=== PATIENT | female | born 1935 | race Caucasian/White ===

== ENCOUNTER 2019-01-09 10:24 | Emergency (ER) | payer OTHER, BC ==
--- NOTE | 2019-01-09 11:22 | RAD REPORT ---
EXAM DESCRIPTION: CT - CTHCSPWOC - 01/09/2019 11:12 am CLINICAL HISTORY: Trauma, head and neck injury. fall, head injury COMPARISON: <Comparisons> TECHNIQUE: Axial 5 mm thick images of the head were obtained. Axial 2 mm thick images of the cervical spine were obtained with sagittal and coronal reconstruction images generated and reviewed. All CT scans are performed using dose optimization technique as appropriate and may include automated exposure control or mA/KV adjustment according to patient size. FINDINGS: CT HEAD WITHOUT CONTRAST: No acute hemorrhage, hydrocephalus or extra-axial collection is identified.No areas of brain edema or midline shift. The paranasal sinuses and mastoids are clear.The calvarium is intact. CT CERVICAL SPINE WITHOUT CONTRAST: No fracture or subluxation.Moderate midcervical spondylosis.No prevertebral soft tissues swelling is identified. Aberrant right subclavian artery noted. IMPRESSION: No acute intracranial or cervical spine findings. Moderate midcervical degenerative change
--- NOTE | 2019-01-09 11:23 | RAD REPORT ---
EXAM DESCRIPTION: CT - CTFB CLINICAL HISTORY: head injury Fall, trauma, facial injury and pain. COMPARISON: No comparisonsNo comparisons TECHNIQUE: Axial 2 mm thick images of the face were obtained with sagittal and coronal reconstructio n images. All CT scans are performed using dose optimization technique as appropriate and may include automated exposure control or mA/KV adjustment according to patient size. FINDINGS: No acute facial bone fracture is seen.The mandible is intact. The globes and orbital contents are grossly unremarkable.The paranasal sinuses and mastoids are clear . IMPRESSION: Negative for facial bone fracture.
--- NOTE | 2019-01-09 11:52 | ER ---
Nurse's Notes [facility] Name: Poly Lutz Age: 83 yrs Sex: Female : 1935 Arrival Date: 01/09/2019 Time: 10:26 Bed 13 Private MD: Diagnosis: Superficial injury of head;Unspecified open wound of right forearm;Unspecified open wound of right upper arm Presentation: 01/09 10:35 Presenting complaint: Patient states: "I fell last night going up the stairs, I tripped aa5 on the last step and fell". Pt c/o skin tears to right arm, bandage noted at this time. Denies taking anticoagulants. Transition of care: patient was not received from another setting of care. Onset of symptoms was January 2019. Risk Assessment: Do you want to hurt yourself or someone else? Patient reports no desire to harm self or others. Initial Sepsis Screen: Does the patient meet any 2 criteria? No. Patient's initial sepsis screen is negative. Does the patient have a suspected source of infection? No. Patient's initial sepsis screen is negative. Care prior to arrival: None. 10:35 Method Of Arrival: Ambulatory aa5 10:35 Acuity: MARCELO 4 aa5 Triage Assessment: 10:44 General: Appears in no apparent distress. uncomfortable, Behavior is calm, cooperative, hj appropriate for age. Pain: Complains of pain in right arm. Historical: - Allergies: 10:37 No Known Allergies; aa5 - PMHx: 10:37 Hypertension; Diabetes - NIDDM; aa5 - PSHx: 10:37 Hysterectomy; omkar knee replacement; hemorrhoidectomy; feet; aa5 10:37 Appendectomy; aa5 - Immunization history:: Last tetanus immunization: up to date. - Social history:: Smoking status: Patient/guardian denies using tobacco. - Ebola Screening: : No symptoms or risks identified at this time. Screenin:44 Abuse screen: Denies threats or abuse. Denies injuries from another. Nutritional hj screening: No deficits noted. Tuberculosis screening: No symptoms or risk factors identified. Fall Risk None identified. Assessment: 10:36 General: Appears in no apparent distress. uncomfortable, Behavior is calm, cooperative, hj appropriate for age. Pain: Complains of pain in right arm. Neuro: Level of Consciousness is awake, alert, obeys commands, Oriented to person, place, time, situation, Appropriate for age. Cardiovascular: Capillary refill < 3 seconds Patient's skin is warm and dry. Respiratory: Airway is patent Respiratory effort is even, unlabored, Respiratory pattern is regular, symmetrical. GI: No signs and/or symptoms were reported involving the gastrointestinal system. : No signs and/or symptoms were reported regarding the genitourinary system. EENT: No signs and/or symptoms were reported regarding the EENT system. Derm: Skin has skin tears on R arm 2ndary to fall. Musculoskeletal: No signs and/or symptoms reported regarding the musculoskeletal system. 11:05 Reassessment: Patient and/or family updated on plan of care and expected duration. Pain hj level reassessed. Patient is alert, oriented x 3, equal unlabored respirations, skin warm/dry/pink. wheeled to CT:. Vital Signs: 10:38 BP 153 / 77; Pulse 82; Resp 16 S; Temp 98.3(O); Pulse Ox 96% on R/A; Weight 83.91 kg aa5 (R); Height 5 ft. 5 in. (165.10 cm) (R); Pain 4/10; 12:05 BP 150 / 75; Pulse 80; Resp 18; Pulse Ox 100% on R/A; hj 10:38 Body Mass Index 30.79 (83.91 kg, 165.10 cm) aa5 ED Course: 10:26 Patient arrived in ED. ds1 10:36 Triage completed. aa5 10:36 Arm band placed on. aa5 10:41 Jann Riddle PA is PHCP. jm 10:41 Keaton Zelaya MD is Attending Physician. jmm 10:44 Taurus Hay, FRANCINE is Primary Nurse. hj 10:44 Patient has correct armband on for positive identification. Bed in low position. Call light in reach. Side rails up X 1. 11:00 Wound care: to skin tears on R upper and R lower arm; located on right arm was cleaned hj with Hibiclens, dressed with Neosporin, wrapped with kerlix, Patient tolerated well. 11:09 CT completed. Patient tolerated procedure well. Patient moved to CT via wheelchair. jg6 Patient moved back from CT. 11:12 CT Head C Spine In Process Unspecified. EDMS 11:12 CT Facial Bones W/O Con In Process Unspecified. EDMS 12:04 No provider procedures requiring assistance completed. Patient did not have IV access during this emergency room visit. Administered Medications: 12:04 Not Given (Patient Refused; pt states "i got the tetanus shot 5 months ago from [facility]): Tetanus-Diphtheria Toxoid Adult 0.5 ml IM once Outcome: 11:50 Discharge ordered by . viet 12:04 Discharged to home ambulatory, with family. 12:04 Condition: stable 12:04 Discharge instructions given to patient, family, Instructed on discharge instructions, follow up and referral plans. wound care, Demonstrated understanding of instructions, follow-up care, wound care. 12:05 Patient left the ED. Signatures: Dispatcher [employer] EDDE Jann Riddle PA PA jmm Sanford, Demi ds1 Izzy Kang, RN RN aa5 Taurus Hay RN RN hj Garcia, Jessica jg6
--- NOTE | 2019-01-09 11:52 | EDPHYS ---
Physician Documentation [facility] Name: Poly Lutz Age: 83 yrs Sex: Female : 1935 Arrival Date: 01/09/2019 Time: 10:26 Bed 13 Private MD: ED Physician Keaton Zelaya HPI: 01/09 10:47 This 83 yrs old Female presents to ER via Ambulatory with complaints of Skin jmm Tear(s). 10:47 Details of fall: The patient fell from an upright position, while walking. Onset: The jmm symptoms/episode began/occurred acutely, last night. Associated injuries: The patient sustained injury to the head, right arm. The patient has not experienced similar symptoms in the past. This is an 83 year old female with a history of htn, dm, that presents to the ED with complaints of skin tears to the right arm. Patient states tripping last night hitting her face against the edge of a chair. Denies LOC, denies vomiting. . Historical: - Allergies: 10:37 No Known Allergies; aa5 - PMHx: 10:37 Hypertension; Diabetes - NIDDM; aa5 - PSHx: 10:37 Hysterectomy; omkar knee replacement; hemorrhoidectomy; feet; aa5 10:37 Appendectomy; aa5 - Immunization history:: Last tetanus immunization: up to date. - Social history:: Smoking status: Patient/guardian denies using tobacco. - Ebola Screening: : No symptoms or risks identified at this time. ROS: 10:47 Constitutional: Negative for fever, chills, and weight loss, Cardiovascular: Negative jmm for chest pain, palpitations, and edema, Respiratory: Negative for shortness of breath, cough, wheezing, and pleuritic chest pain. 10:47 Skin: Positive for abrasion(s). 10:47 Neuro: Positive for 10:47 All other systems are negative. Exam: 10:47 Constitutional: This is a well developed, well nourished patient who is awake, alert, jmm and in no acute distress. 10:47 ENT: Moist Mucus Membranes Neck: Trachea midline, Supple Chest/axilla: Normal chest wall appearance and motion. 10:47 Head/face: ecchymosis noted to the right medial periorbital region. 10:47 Cardiovascular: Rate: normal, Rhythm: regular. 10:47 Respiratory: the patient does not display signs of respiratory distress, Respirations: normal, Breath sounds: are clear throughout. 10:47 Abdomen/GI: Inspection: abdomen appears normal, Bowel sounds: normal. 10:47 Musculoskeletal/extremity: multiple skin tears noted to the right upper and lower arm. no active bleeding appreciated, compartments are soft, full radial pulse, full rom, NVI. 10:47 Skin: ecchymosis noted to the right periocular region. 10:47 Neuro: Orientation: is normal, Mentation: is normal, Memory: is normal, Gait: is steady. 10:47 Psych: Behavior/mood is pleasant, cooperative. Vital Signs: 10:38 BP 153 / 77; Pulse 82; Resp 16 S; Temp 98.3(O); Pulse Ox 96% on R/A; Weight 83.91 kg aa5 (R); Height 5 ft. 5 in. (165.10 cm) (R); Pain 4/10; 12:05 BP 150 / 75; Pulse 80; Resp 18; Pulse Ox 100% on R/A; hj 10:38 Body Mass Index 30.79 (83.91 kg, 165.10 cm) aa5 MDM: 10:47 Patient medically screened. [facility] 11:49 Data reviewed: vital signs, nurses notes. Counseling: I had a detailed discussion with [facility] the patient and/or guardian regarding: the historical points, exam findings, and any diagnostic results supporting the discharge/admit diagnosis, radiology results, the need for outpatient follow up, to return to the emergency department if symptoms worsen or persist or if there are any questions or concerns that arise at home. 01/09 10:51 Order name: CT Head C Spine; Complete Time: 11:29 [facility] 01/09 10:51 Order name: CT Facial Bones W/O Con; Complete Time: 11:29 [facility] 01/09 10:52 Order name: Wound Care: Hibiclenz scrub, triple abx ointment, non adherant dressing; [facility] Complete Time: 11:03 Administered Medications: 12:04 Not Given (Patient Refused; pt states "i got the tetanus shot 5 months ago from [facility]): Tetanus-Diphtheria Toxoid Adult 0.5 ml IM once Disposition: 15:49 Co-signature as Attending Physician, Keaton Zelaya MD. rn Disposition: 01/09/19 11:50 Discharged to Home. Impression: Superficial injury of head, Unspecified open wound of right forearm, Unspecified open wound of right upper arm. - Condition is Stable. - Discharge Instructions: Head Injury, Adult, Skin Tear Care. - Medication Reconciliation Form, Thank You Letter, Antibiotic Education, Prescription Opioid Use form. - Follow up: Private Physician; When: 2 - 3 days; Reason: Recheck today's complaints, Continuance of care, Re-evaluation by your physician. Signatures: Dispatcher [employer] EDMS Jann Riddle PA PA jmm Nieto, Roman, MD MD rn Calderon, Audri RN RN aa5 Taurus Hay RN RN hj Corrections: (The following items were deleted from the chart) 12:05 11:50 01/09/2019 11:50 Discharged to Home. Impression: Superficial injury of head; hj Unspecified open wound of right forearm; Unspecified open wound of right upper arm. Condition is Stable. Forms are Medication Reconciliation Form, Thank You Letter, Antibiotic Education, Prescription Opioid Use. Follow up: Private Physician; When: 2 - 3 days; Reason: Recheck today's complaints, Continuance of care, Re-evaluation by your physician. viet
== END 2019-01-09 12:05 | disposition home or self-care (01) ==
LOC: ER 10:24
DX: S51.811A Laceration without foreign body of right forearm, initial encounter (principal); S41.111A Laceration without foreign body of right upper arm, initial encounter; W01.190A Fall on same level from slipping, tripping and stumbling with subsequent striking against furniture, initial encounter; Y93.01 Activity, walking, marching and hiking; Y92.9 Unspecified place or not applicable; Z96.653 Presence of artificial knee joint, bilateral; I10 Essential (primary) hypertension
CPT/HCPCS: 70450; 70486; 72125; 76377; 99284